=== PATIENT | male | born 2000 | race Caucasian/White ===

== ENCOUNTER 2023-10-05 20:45 | Emergency (ER) | payer OTHER ==
[2023-10-05 20:57] VITALS: BP 138/75; PULSE 105; RESP 18; TEMP 98.2; BMI 36.6
[2023-10-05] MEDS ORDERED: KETOROLAC TROMETHAMINE 30 MG/1 ML VIAL IM ONE (22:07)
[2023-10-05] MEDS ORDERED: KETOROLAC TROMETHAMINE 30 MG/1 ML VIAL ONE (22:12)
[2023-10-05 23:58] LABS: THROAT:GRP A STREP NOT DETECTED (NOTDETECTED)
== END 2023-10-06 00:47 | disposition home or self-care (01) ==
LOC: JER 20:45
PROC: 3E0233Z Introduction of Anti-inflammatory into Muscle, Percutaneous Approach (ICD-10-PCS; principal; 2023-10-05)
DX: G44.209 Tension-type headache, unspecified, not intractable (principal); R09.81 Nasal congestion; R53.83 Other fatigue; L29.9 Pruritus, unspecified; B34.9 Viral infection, unspecified; Z20.822 Contact with and (suspected) exposure to COVID-19
CPT/HCPCS: 0241U-QW; 87651; 99284-25

== ENCOUNTER 2023-11-24 20:31 | Emergency (ER) | payer OTHER ==
[2023-11-24 20:35] VITALS: BP 144/89; PULSE 90; RESP 20; TEMP 98; BMI 36.6
[2023-11-24] MEDS ORDERED: ACETAMINOPHEN 500 MG TABLET (FP) PO ONE (21:19)
[2023-11-24] MEDS ORDERED: predniSONE 20 MG TABLET (UD) PO ONE (21:19)
[2023-11-24] MEDS ORDERED: ACETAMINOPHEN 500 MG TABLET (FP) ONE (21:20)
[2023-11-24] MEDS ORDERED: predniSONE 20 MG TABLET (UD) ONE (21:21)
== END 2023-11-24 21:35 | disposition home or self-care (01) ==
LOC: JERFT 20:31 → JER 20:31 → JERFT 21:35
DX: H93.12 Tinnitus, left ear (principal); M26.609 Unspecified temporomandibular joint disorder, unspecified side
CPT/HCPCS: 99283-25